=== PATIENT | male | born 1990 | race African-American/Black ===

== ENCOUNTER 2017-03-22 19:32 | Emergency (ER) | payer OTHER ==
[~2017-03-22] VITALS: Ht 175.3 cm; Wt 65.8 kg
[2017-03-22 22:32] VITALS: BP 110/76
== END 2017-03-22 22:33 | disposition home or self-care (01) ==
LOC: ER 19:32
DX: H11.32 Conjunctival hemorrhage, left eye (principal); F10.99 Alcohol use, unspecified with unspecified alcohol-induced disorder